=== PATIENT | female | born 1960 | race Caucasian/White ===

== ENCOUNTER 2019-11-25 15:20 | Day surgery (SDC) | payer OTHER ==
[2019-11-22 10:53] VITALS: BMI 27.4
[~2019-11-25 15:20] MED LIST: Dexamethasone 20 MG/5 ML VIAL ONE; Lidocaine 1% PF 5 ML VIAL ONE; Ondansetron PF 4 MG/2 ML Vial ONE; PROPOFOL 200 MG/20 ML VIAL ONE
[2019-11-25] MEDS ORDERED: Midazolam HCl 2 mg/2 ml Vial ONE (21:09)
[2019-11-25] MEDS ORDERED: HYDROmorphone 0.5 MG/0.5 ML SYRINGE ONE (21:09)
[2019-11-25] MEDS ORDERED: Fentanyl 100 MCG/2 ML VIAL ONE (21:09)
[2019-11-25] MEDS ORDERED: Betamet Acet/Betamet Na Ph 30 MG/5 ML VIAL ONE (21:14)
[2019-11-25] MEDS ORDERED: Bacitracin Zinc Ointment 30 gm TUBE ONE (21:14)
[2019-11-25] MEDS ORDERED: Bupivacaine 0.25% HCL 30 ML VIAL ONE (21:14)
[2019-11-25] MEDS ORDERED: Sodium Chloride 0.9% 0 ML ONE (21:14)
[2019-11-25] MEDS ORDERED: Bupivacaine PF 0.5% 30 ML VIAL ONE (21:14)
[2019-11-25] MEDS ORDERED: Ketorolac Tromethamine 30 MG/ML VIAL ONE (22:50)
[2019-11-25] MEDS ORDERED: HYDROcodone/Acetaminophen 10/325 mg Tablet ONE (23:29)
[2019-11-25] MEDS ORDERED: Ondansetron PF 4 MG/2 ML Vial ONE (23:50)
--- NOTE | 2019-11-26 08:10 | RAD ---
RIGHT HAND: Four fluoroscopic images presented. INDICATION: Fluoroscopic imaging in OR during open reduction internal fixation right hand. FINDINGS: These films demonstrate pins transfixing the base of the 4th and 5th metacarpals. POS: AGW
--- NOTE | 2019-11-26 08:36 | OP ---
DATE OF PROCEDURE: 11/25/2019 PREOPERATIVE DIAGNOSES: 1. Right small finger displaced metacarpal base fracture. 2. Right ring finger small finger metacarpal base fracture. FINDINGS: Small finger, Intraarticular with one comminuted piece, and the right ring finger metacarpal fracture was extra-articular. PROCEDURES PERFORMED: 1. Closed reduction with percutaneous pinning, right small finger metacarpal fracture. 2. Closed reduction with percutaneous pinning, right ring finger metacarpal fracture. 3. C-arm supervision. ANESTHESIA: General endotracheal anesthesia augmented by 20 mL of 0.5% metacarpal block. DESCRIPTION OF PROCEDURE: After successful general endotracheal anesthesia, the limb was prepped and draped. The patient came to hospital today because of marked sagittal plane angulation, comminution, and shortening of the fracture, making the reduction and stabilization indicated. Initially, we gave the patient 10 mL of 0.5% metacarpophalangeal block with Marcaine and then gave additional 10 afterwards to include the superficial ulnar nerve level block. We then performed closed reduction x2 and noticed we could achieve the length; there was a small intraarticular fragment seen at the junction between the ulnar two-thirds and the radial one-third of the small finger base. Otherwise, it was nearly anatomic reduction. Using traction again, I identified the small finger metacarpal intraarticular fragment; we reduced it with percutaneous techniques and then passed 0.045 K-wire 1.5 mm distal to the joint that secured the fragment. We then placed an oblique wire across the metacarpal, across the fracture obliquely into the same corner, which was now stable. We then passed two wires both from the small finger side of the ring finger metacarpal again holding it anatomically reduced with in-line traction to achieve length, remove sagittal plane angulation, and stabilize the fracture. Both fractures were stable to rotation, flexion and extension under C-arm fluoroscopy. There was no evidence of triquetrum injury, no evidence of hamate injury, and no evidence of carpometacarpal joint dislocations. Final radiographs were taken. The wires were bent and cut just barely under the skin. We then placed her in a slightly thickened dressing, an ulnar based short-arm splint with the MP joint flexed to 60 degrees, and the PIP free at the small and the ring finger, while the other digits were free. The patient had excellent circulation and left the operating room without evidence of anesthetic or operative complications. Job ID: [id number]
== END 2019-11-26 | disposition home or self-care (01) ==
LOC: SDC 15:20
PROVIDERS: ATTEND Orthopaedic Surgery Hand Surgery
PROC: 0PSP34Z Reposition Right Metacarpal with Internal Fixation Device, Percutaneous Approach (ICD-10-PCS; principal; 2019-11-26)
DX: S62.314A Displaced fracture of base of fourth metacarpal bone, right hand, initial encounter for closed fracture (principal); S62.316A Displaced fracture of base of fifth metacarpal bone, right hand, initial encounter for closed fracture
CPT/HCPCS: 76000; J0690; J0702; J1100; J1170; J1885; J2250; J2405; J2704; J3010; J3490; S0020